=== PATIENT | female | born 1955 | race Caucasian/White ===

== ENCOUNTER → 2016-11-27 | Outpatient (CLI) | payer MEDICARE, MEDICAID ==
--- NOTE | 2016-11-27 14:45 | MRI ---
Study: MRI of the Cervical Spine. Indication: CERVICAL SPONDYLOSIS Technique: Multiplanar, multi sequence MRI of the cervical spine was obtained without intravenous contrast. Comparison: Radiographs April 23, 2015. Findings: Vertebral body height maintained. Straightening cervical spine. No marrow infiltrating lesion. Spinal cord normal in caliber and signal. Susceptibility artifact noted at C4-C6 from the surgical construct. C4-C5 ACDF and separate C5-C6 ACDF noted. Evaluation for osseous fusion limited given the susceptibility artifact. Nonsurgical disc spaces demonstrate mild loss of disc space height and hydration. Level by level analysis as follows: C2-C3: Unremarkable C3-C4: Trace anterolisthesis. 2 mm of disc uncovering/bulging with indentation ventral thecal sac and mild spinal canal narrowing, mid sagittal thecal sac diameter 9 mm moderate right and mild left facet arthrosis noted with mild bilateral uncovertebral hypertrophy. There is moderate right and mild left neural foraminal narrowing. C4-C5: Postsurgical changes above without recurrent disc protrusion or spinal canal narrowing. Minimal bilateral neural foraminal narrowing. C5-C6: No recurrent disc protrusion spinal canal narrowing. Minimal bilateral neural foraminal narrowing. C6-C7: Unremarkable. C7-T1: Mild bilateral facet arthrosis moderate right and mild left uncovertebral hypertrophy. Moderate right and mild left neural foraminal narrowing. Impression: C4-C6 fusion construct as above with minimal bilateral neural foraminal narrowing at C4-C5 and C5-C6. C3-C4 mild spinal canal narrowing with moderate right and mild left neural foraminal narrowing. C7-T1 moderate right and mild left neural foraminal narrowing. Electronically signed by: Judah Toney MD 11/27/2016 14:44
== END ==
LOC: MRI 12:58
PROVIDERS: ATTEND Anesthesiology
DX: M47.22 Other spondylosis with radiculopathy, cervical region (principal); Z98.1 Arthrodesis status

== ENCOUNTER 2018-10-10 06:33 | Day surgery (SDC) | payer MEDICARE, MEDICAID ==
[2018-10-10] MEDS ORDERED: TROP 1%/CYCLOPEN 1%/PHENYL 2% DROPS OPHTH ONE (06:34)
[2018-10-10] MEDS ORDERED: MIDAZOLAM INJ 2 MG/2 ML VIAL ONE (06:47)
[2018-10-10] MEDS ORDERED: PROPARACAINE 0.5% OPHTH SOL 15 ML BTTL LEFT_EYE ONE (11:48)
[2018-10-10] MEDS ORDERED: LIDOCAINE 1% MPF 5 ML VIAL INJ ONE (11:58)
[2018-10-10] MEDS ORDERED: TOBRAMYCIN SULF 0.3 % OPHT SOL 1 DROP LEFT_EYE ONE ×2 (12:01→12:09)
[2018-10-10] MEDS ORDERED: DEXAMETHASONE 0.1% OPHTH SOL 1 DROP LEFT_EYE ONE ×2 (12:01→12:09)
[2018-10-10] MEDS ORDERED: BRIMONIDINE 0.2% OPHTH DROPS LEFT_EYE ONE ×2 (12:01→12:09)
== END 2018-10-10 12:57 | disposition home or self-care (01) ==
LOC: AMB 06:33
PROVIDERS: ATTEND Ophthalmology
DX: H25.12 Age-related nuclear cataract, left eye (principal); E11.36 Type 2 diabetes mellitus with diabetic cataract; I10 Essential (primary) hypertension; K21.9 Gastro-esophageal reflux disease without esophagitis; I25.2 Old myocardial infarction; Z95.5 Presence of coronary angioplasty implant and graft; Z95.0 Presence of cardiac pacemaker; Z88.2 Allergy status to sulfonamides; Z88.6 Allergy status to analgesic agent; Z79.01 Long term (current) use of anticoagulants; Z79.899 Other long term (current) drug therapy
CPT/HCPCS: 00142; 66984; J2250

== ENCOUNTER 2018-10-24 05:42 | Day surgery (SDC) | payer MEDICARE, MEDICAID ==
[2018-10-24] MEDS ORDERED: TROP 1%/CYCLOPEN 1%/PHENYL 2% DROPS ONE (05:59)
[2018-10-24] MEDS ORDERED: PROPARACAINE 0.5% OPHTH SOL 15 ML BTTL ONE (05:59)
[2018-10-24] MEDS ORDERED: MIDAZOLAM INJ 2 MG/2 ML VIAL ONE (06:43)
[2018-10-24] MEDS ORDERED: PROPARACAINE 0.5% OPHTH SOL 15 ML BTTL RIGHT_EYE ONE (08:21)
[2018-10-24] MEDS ORDERED: DEXAMETHASONE 0.1% OPHTH SOL 1 DROP RIGHT_EYE ONE ×2 (08:31→08:49)
[2018-10-24] MEDS ORDERED: TOBRAMYCIN-DEXAMETH OPHTH SOL 1 DROP RIGHT_EYE ONE ×2 (08:31→08:49)
[2018-10-24] MEDS ORDERED: BRIMONIDINE 0.2% OPHTH DROPS RIGHT_EYE ONE ×2 (08:31→08:49)
[2018-10-24] MEDS ORDERED: LIDOCAINE 1% 2 ML VIAL INJ ONE ×2 (08:31→08:34)
[2018-10-24] MEDS ORDERED: TOBRAMYCIN SULF 0.3 % OPHT SOL 1 DROP OPHTH ONE (08:49)
== END 2018-10-24 09:30 | disposition home or self-care (01) ==
LOC: AMB 05:42
PROVIDERS: ATTEND Ophthalmology
DX: H26.9 Unspecified cataract (principal); E11.36 Type 2 diabetes mellitus with diabetic cataract; I10 Essential (primary) hypertension; I25.10 Atherosclerotic heart disease of native coronary artery without angina pectoris; I25.2 Old myocardial infarction; K21.9 Gastro-esophageal reflux disease without esophagitis; Z95.810 Presence of automatic (implantable) cardiac defibrillator; F17.290 Nicotine dependence, other tobacco product, uncomplicated; Z88.2 Allergy status to sulfonamides; Z88.6 Allergy status to analgesic agent; Z79.02 Long term (current) use of antithrombotics/antiplatelets; Z79.899 Other long term (current) drug therapy
CPT/HCPCS: 00142; 66984; J2250

== ENCOUNTER → 2019-05-10 | Outpatient (CLI) | payer OTHER, MEDICAID ==
--- NOTE | 2019-05-11 13:08 | CT ---
EXAM DESCRIPTION: Lumbar Spine CLINICAL HISTORY: SPONDYLOSIS OF LUMBOSACRAL REGION COMPARISON: The thoracic spine same day TECHNIQUE: Non contrast transaxial CT images of the lumbar spine are obtained with coronal and sagittal reconstructed images. This exam was performed according to our departmental dose-optimization program, which includes automated exposure control, adjustment of the mA and/or kV according to patient size and/or use of iterative reconstruction technique . FINDINGS: GENERAL Lumbar vertebral body heights are maintained. Osteopenia the osseous structures. Mild curvature of the upper thoracic spine with convexity towards the right. Bilateral pedicle screw and posterior hardware construct from L4 through S1 with interbody implants are seen. Solid interbody and posterior lateral fusion is seen. Partial L4 and complete L5 laminectomy changes. Cardiac pacemaker leads are seen. Visualized intra-abdominal retroperitoneal structures show no acute findings. Degenerative changes of the sacroiliac joints are seen. L1-2 No significant findings. L2-3 No significant findings. L3-4 Mild posterior disc space narrowing is seen with 2 to 3 mm broad-based annular disc bulge. Mild bilateral facet hypertrophic and degenerative changes with moderate ligamentum flavum thickening. Mild to moderate spinal canal stenosis is seen with thecal sac measuring 6 mm AP centrally. Mild bilateral lateral recess encroachment and mild right greater than left foraminal encroachment is seen. L4-5 Postsurgical changes. No spinal canal stenosis or foraminal encroachment. Mild heterotopic ossification in the inferior aspect of the left neural foramen. L5-S1 Postsurgical changes as described above without spinal canal stenosis or foraminal encroachment. IMPRESSION: Postsurgical changes with posterior hardware fixation and solid interbody and posterior fusion from L4 through S1. Laminectomy changes at L4 and L5 as described above. Moderate advanced disc disease and facet arthropathy at L3-4 attributes to mild to moderate spinal canal stenosis with mild right greater than left foraminal encroachment. Electronically signed by: Vijay Damon MD 05/11/2019 1:06 PM CDT
--- NOTE | 2019-05-11 13:14 | CT ---
EXAM DESCRIPTION: Thoracic Spine CLINICAL HISTORY: SPONDYLOSIS OF LUMBOSACRAL REGION COMPARISON: Lumbar spine same day TECHNIQUE: Noncontrast transaxial CT images of the thoracic spine are obtained with coronal and sagittal reconstructed images. This exam was performed according to our departmental dose-optimization program, which includes automated exposure control, adjustment of the mA and/or kV according to patient size and/or use of iterative reconstruction technique . FINDINGS: Osseous structures are diffusely osteopenic. Thoracic vertebral body heights are maintained without compression deformity. Mild curvature of the lower thoracic spine with convexity towards the right is seen. Normal thoracic kyphosis. No spinal canal stenosis or foraminal encroachment. Mild anterior disc space narrowing with disc osteophytic ridging from T6 through T10. Mild facet arthrosis in the upper thoracic spine without spinal canal stenosis or foraminal encroachment. Degenerative changes at the articulation of the right first rib and at T1 with air in the articulation. Cardiac pacemaker leads are seen. Calcified granuloma in the medial aspect of the right lower lobe. Mild centrilobular emphysematous changes to the lungs are seen. IMPRESSION: Mild disc degenerative changes of the mid thoracic spine with mild facet arthropathy of the upper thoracic spine. No high-grade spinal canal stenosis or foraminal encroachment. Electronically signed by: Vijay Damon MD 05/11/2019 1:13 PM CDT
== END ==
LOC: CT 11:30
PROVIDERS: ATTEND Anesthesiology
DX: M47.817 Spondylosis without myelopathy or radiculopathy, lumbosacral region (principal); M47.816 Spondylosis without myelopathy or radiculopathy, lumbar region; M47.814 Spondylosis without myelopathy or radiculopathy, thoracic region; M51.16 Intervertebral disc disorders with radiculopathy, lumbar region; Z98.1 Arthrodesis status

== ENCOUNTER 2019-05-11 | Emergency (ER) | payer MEDICARE, MEDICAID | END 2019-05-11 20:07 | disposition home or self-care (01) ==

== ENCOUNTER → 2019-07-21 | Outpatient (CLI) | payer OTHER, MEDICAID ==
--- NOTE | 2019-07-26 09:08 | MAM ---
EXAM DESCRIPTION: 3D Screening BILATERAL : Digital Mammography. CLINICAL HISTORY: 63 years Female ANNUAL SCREENING no complaints. No personal or remote family history of breast cancer. Childbirth. Postmenopausal 10+ years. No HRT. Lifetime risk of developing breast cancer (Tyrer-Cuzick model)(%): 5%. COMPARISON: Baseline study at this facility. No prior reports available. TECHNIQUE: Bilateral CC and MLO projection full-field images, digital tomosynthesis mammographic technique Bilateral digital 2-D full-field MLO images. CAD not available for tomosynthesis or 2-D images. FINDINGS: The breast parenchymal density pattern is: Almost entirely fatty. No skin thickening or nipple retraction. Pacemaker power pack partially obscures the axillary portion and part of the superior pectoral muscle left breast. Bilateral vascular calcifications. Bilateral solitary microcalcifications. No focal, stellate mass or density, focal asymmetry , and no suspicious microcalcifications bilaterally. IMPRESSION: Benign exam. BIRAD CATEGORY: 2 BENIGN FINDINGS. RECOMMENDATIONS: FOLLOW UP: Routine digital bilateral mammographic screening, one year interval from June 2019. Written communication explaining the IMPRESSION and follow-up, will be mailed to the patient and referring health care provider. According to the [employer], yearly mammograms are recommended starting at age 40 and continuing as long as a woman is in good health. Any breast change noted on a breast self-exam should be reported promptly to the patient's healthcare provider. Breast MRI is recommended for women with an approximately 20-25% or greater lifetime risk of breast cancer, including women with a strong family history of breast or ovarian cancer and women who have been treated for Hodgkin's disease. A negative mammographic report should not delay tissue diagnosis in patients with significant clinical history or physical findings. Extremely dense breast tissue limits the sensitivity of digital mammography. Electronically signed by: Mohamud Wolfe MD 07/26/2019 9:06 AM CDT
== END ==
LOC: MAMMO 10:00
PROVIDERS: ATTEND Emergency Medicine
DX: Z12.31 Encounter for screening mammogram for malignant neoplasm of breast (principal)

== ENCOUNTER 2019-11-28 15:59 | Emergency (ER) | payer MEDICARE, MEDICAID ==
[2019-11-28] MEDS ORDERED: SODIUM CHLORIDE 0.9% (FLUSH) 10 ML SYG IV PRN (16:46)
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
--- NOTE | 2019-11-28 17:37 | RAD ---
EXAM DESCRIPTION: Chest,1 View CLINICAL HISTORY:64 years Female, CHEST PAIN Comparison: May 11, 2019 FINDINGS: No focal lung consolidation. No pleural effusion. No pneumothorax. Left chest cardiac pacer device. Aortic calcifications. Cardiac and mediastinal silhouette is unremarkable. No acute osseous abnormality. Soft tissues are unremarkable. IMPRESSION: No acute findings. No focal lung consolidation. Electronically signed by: Jean Claude Vasquez MD 11/28/2019 5:36 PM MANAGER WELDING
--- NOTE | 2019-11-28 17:41 | CT ---
EXAM: CT Head Without Intravenous Contrast CLINICAL HISTORY: The patient is 64 years old and is Female; DIZZINESS, GEN WEAKNESS, IBRAHIM. LOC 2 D AGO. TECHNIQUE: Axial computed tomography images of the head/brain without intravenous contrast. Sagittal and coronal reformatted images were created and reviewed. This CT exam was performed using one or more of the following dose reduction techniques: automated exposure control, adjustment of the mA and/or kV according to patient size, and/or use of iterative reconstruction technique. COMPARISON: No relevant prior studies available. FINDINGS: Brain: Unremarkable. No hemorrhage. No significant white matter disease. No edema. Ventricles: Unremarkable. No ventriculomegaly. Bones/joints: Unremarkable. No acute fracture. Soft tissues: Unremarkable. Sinuses: Unremarkable as visualized. No acute sinusitis. Mastoid air cells: Unremarkable as visualized. No mastoid effusion. IMPRESSION: No acute intracranial findings. Electronically signed by: Jean Claude Vasquez MD 11/28/2019 5:39 PM SILVERWARE ASSEMBLER
[2019-11-28 20:24] VITALS: O2SAT 96
[2019-11-28 20:26] VITALS: BP 123/80; TEMP 98.4
== END 2019-11-28 20:17 | disposition home or self-care (01) ==
LOC: ER 15:59
DX: R07.89 Other chest pain (principal); R55 Syncope and collapse; R53.1 Weakness; R42 Dizziness and giddiness; R51 Headache; J44.9 Chronic obstructive pulmonary disease, unspecified; I25.2 Old myocardial infarction; I11.0 Hypertensive heart disease with heart failure; I50.9 Heart failure, unspecified; E11.9 Type 2 diabetes mellitus without complications; Z95.5 Presence of coronary angioplasty implant and graft; Z79.4 Long term (current) use of insulin; Z79.899 Other long term (current) drug therapy; Z88.6 Allergy status to analgesic agent; Z88.2 Allergy status to sulfonamides; Z95.810 Presence of automatic (implantable) cardiac defibrillator

== ENCOUNTER → 2020-02-27 | Outpatient (CLI) | payer MEDICARE, MEDICAID ==
--- NOTE | 2020-02-27 08:42 | RAD ---
EXAM DESCRIPTION: Radiographs of the left Shoulder:XR/CR/DR CLINICAL HISTORY: PAIN COMPARISON: None TECHNIQUE: 4 views. Internal and External rotation. Scapular "Y" image. Axillary view. FINDINGS: No fracture shoulder. Decreased bone density. AC joint minimal narrowing. Glenohumeral joint hardware on the greater tuberosity indicating prior rotator cuff repair. Minimal narrowing at the anterior joint space. No abnormal radiodense objects in the soft tissues or joint spaces. IMPRESSION: Decreased bone density. Minimal narrowing at the anterior glenohumeral joint space. Minimal narrowing of the AC joint space. Prior rotator cuff repair. Electronically signed by: Mohamud Wolfe MD 02/27/2020 8:40 AM CDT
== END ==
LOC: RAD 08:10
PROVIDERS: ATTEND Orthopaedic Surgery
DX: M85.812 Other specified disorders of bone density and structure, left shoulder (principal); M25.812 Other specified joint disorders, left shoulder; Z98.890 Other specified postprocedural states

== ENCOUNTER → 2020-03-12 | Outpatient (CLI) | payer MEDICARE, MEDICAID ==
--- NOTE | 2020-03-12 11:11 | CT ---
EXAM DESCRIPTION: CT arthrogram left shoulder CLINICAL HISTORY: Rotator cuff repair. Shoulder pain. Evaluate for recurrent tear COMPARISON: None Available. TECHNIQUE: Spiral CT with multiplanar reformatted images. Intra-articular iodinated contrast This exam was performed according to our departmental dose-optimization program, which includes automated exposure control, adjustment of the mA and/or kV according to patient size and/or use of iterative reconstruction technique. FINDINGS: Single suture anchor in the greater tuberosity along the posterior supraspinatus tendon insertion. Full-thickness recurrent tear with contrast traversing the tendon extending into the subacromial subdeltoid bursa. A small tendon fragment remains attached to the greater tuberosity. Full-thickness tendon gap approximately 1 cm medial lateral. Anteroposterior dimension of the tear approximately 0.9 cm. Supraspinatus muscle volume is normal with grade 1 fatty streaking. Infraspinatus tendon anteriorly at the junction with the full-thickness recurrent supraspinatus tendon tear. Muscle volume mildly decreased with grade 1 fatty infiltration. Teres minor and subscapularis tendons and muscles are normal Normal biceps tendon. Labral anchor intact. No acute labral detachment. Blunting of the periphery of the posterior labrum with mild posterior capsular laxity No full-thickness chondrosis/chronic osteochondral lesion of the ulnohumeral joint Minimal acromioclavicular osteoarthritis. Mild anterior lateral downsloping of the acromion Non-MSK: No mass or adenopathy in the visualized upper chest. Emphysema. No acute inflammatory process. Cardiac pacemaker. IMPRESSION: Full-thickness recurrent supraspinatus tendon tear Electronically signed by: Aryan Park MD 03/12/2020 11:10 AM CDT
--- NOTE | 2020-03-13 14:11 | RAD ---
EXAM DESCRIPTION: Arthrogram Shoulder Left: RF CLINICAL HISTORY: FULL THICKNESS ROTATOR TEAR. Left shoulder. COMPARISON: Post-arthrogram CT scan of the left shoulder same date. TECHNIQUE: The procedure was performed by Dr. Wolfe; procedure was explained to the patient with risks and benefits. The patient gave verbal and written consent. Contrast mixture of 10 mL non-ionic 300 contrast and 10 mL of sterile normal saline was prepared. Patient supine on the fluoroscopic table with left shoulder in external rotation. The anterior mid superior left glenohumeral joint was localized by fluoroscopy. The skin was marked, then prepped and draped in a sterile fashion. Intradermal, subcutaneous and intramuscular 1% Xylocaine was given for topical anesthesia. A 1.5 inch, 25-gauge needle was introduced into the anterior superior left glenohumeral joint capsule under fluoroscopic visualization. A test injection of 2 cc of non-ionic Optiray 300 contrast was performed under fluoroscopy. Additional 8 CC of contrast mixture was then injected under fluoroscopy. The patient tolerated the procedure well. Active exercise. Patient was transferred to the CT suite for spiral-axial and reconstruction imaging. No immediate complications. 1 AP image of the left shoulder in external rotation recorded for the patient's permanent medical record. Total fluoroscopic time was 1.5 minutes. DAP: 1.92 Gy-cm2. IMPRESSION: Single image shows contrast in the subacromial-subdeltoid bursa which is suggestive of a full-thickness rotator cuff tear. Successful, arthrogram of the left shoulder prior to CT scan of the left shoulder. Please refer to that examination and images. Electronically signed by: Mohamud Wolfe MD 03/13/2020 2:10 PM CDT
== END ==
LOC: CT 10:00
PROVIDERS: ATTEND Emergency Medicine
DX: M75.122 Complete rotator cuff tear or rupture of left shoulder, not specified as traumatic (principal)

== ENCOUNTER → 2020-04-11 | Outpatient (CLI) | payer MEDICARE, MEDICAID | LOC: LAB.O 15:23 | PROVIDERS: ATTEND Orthopaedic Surgery | DX: Z01.818 Encounter for other preprocedural examination (principal) ==

== ENCOUNTER 2020-12-24 05:52 | Day surgery (SDC) | payer MEDICARE, MEDICAID ==
[2020-12-24] MEDS ORDERED: SODIUM CHLORIDE 0.9% 50 ML VIAL ONE (07:00)
[2020-12-24] MEDS ORDERED: LIDOCAINE 1% 10 ML VIAL INJ ONE (07:00)
[2020-12-24] MEDS ORDERED: PROPOFOL 200 MG/20 ML VIAL IV ONE (07:00)
[2020-12-24] MEDS ORDERED: HYDROmorphone HCL INJ 2 MG/ML VIAL ONE (13:54)
[2020-12-24] MEDS ORDERED: HYDROcodone 5MG/APAP 325MG 1 EA TAB ONE (14:21)
[2020-12-24 14:37] VITALS: O2SAT 98
[2020-12-24 15:02] VITALS: BP 139/75; TEMP 97.6
--- NOTE | 2020-12-25 08:18 | RAD ---
EXAM DESCRIPTION: Fluoroscopy Up to 1Hr CLINICAL HISTORY: 65 years Female, RT SHOULDER NUNO COMPARISON: None. TECHNIQUE: Dose equals 0.39 mGy. Fluoroscopy time equals 7.4 seconds. FINDINGS: Single spot film image was obtained during orthopedic procedure. Tendon suture anchor is seen in the humeral head. The image is not labeled right or left. Patient had a previous left shoulder arthrogram with a similar tendon suture anchor in February 2020. The order suggest that this is the right shoulder. Clinical correlation recommended. IMPRESSION: Single spot film image obtained during orthopedic procedure. Electronically signed by: Christopher Chen MD 12/25/2020 8:16 AM [facility]
--- NOTE | 2020-12-26 10:17 | OP ---
DATE OF PROCEDURE: 12/24/20 PREOPERATIVE DIAGNOSIS: 1. Arthrofibrosis of the shoulder. POSTOPERATIVE DIAGNOSIS: 1. Arthrofibrosis of the shoulder. PROCEDURE: 1. Closed manipulation under anesthesia. SURGEON: Tom Pearce MD. CYBER SECURITY ARCHITECT: Mohamud Duncan CST, SA-C. ANESTHESIA: Conscious sedation. COMPLICATIONS: None. FINDINGS: Preprocedure range of motion limited to less than 90 degrees of abduction and forward flexion. Postprocedure range of motion of approximately 160 degrees of abduction and 160 degrees of forward flexion. External rotation was to approximately 40 degrees and internal rotation to the plane of body. INDICATION: Ms. Stone has a history of rotator cuff repair. She unfortunately developed what appeared to be arthrofibrosis. Because of the arthrofibrosis and the limitations that she was suffering, we discussed options. After discussing the risks, benefits and alternatives to closed manipulation under anesthesia, she gave informed consent. PROCEDURE: The patient was brought to the Operating Room and placed in supine position. Sedation was administered and the arm was taken through the range of motion as stated above. After achieving that range of motion, fluoroscopic imaging was used to ensure no bony complications occurred during the procedure. The patient was then taken back to the Day Surgery Unit. POSTPROCEDURE PLAN: Morena has been strongly encouraged to begin immediate physical therapy and do it multiple times on her own throughout the week in addition to going to physical therapy in formal fashion. I have stressed that her daughter as well. With regards to followup, we will see her again in 2 weeks for reevaluation. #[id number] MTDD
== END 2020-12-24 14:59 | disposition home or self-care (01) ==
LOC: AMB 05:52
PROVIDERS: ATTEND Orthopaedic Surgery
DX: M24.612 Ankylosis, left shoulder (principal); E11.9 Type 2 diabetes mellitus without complications; J45.909 Unspecified asthma, uncomplicated; I25.2 Old myocardial infarction; F17.290 Nicotine dependence, other tobacco product, uncomplicated; Z88.2 Allergy status to sulfonamides; Z88.6 Allergy status to analgesic agent; Z79.4 Long term (current) use of insulin; Z79.899 Other long term (current) drug therapy
CPT/HCPCS: 01620; 23700; 36416; 76000; 80307; 82948; J1170